=== PATIENT | male | born 1975 | race Hispanic/Latino ===

== ENCOUNTER 2017-01-07 20:21 | Emergency (ER) | payer BC, MEDICAID ==
--- NOTE | 2017-01-07 20:45 | ED PDOC ---
HPI: Psych/Substance Abuse Time Seen by Provider: 01/07/17 20:23 Chief Complaint (Nursing): Psychiatric Evaluation Chief Complaint (Provider): Crisis Evaluation History Per: Patient History/Exam Limitations: no limitations Onset/Duration Of Symptoms: Unknown Suicide/Self Injury Attempted (Context): None Modifying Factor(s): None Severity: None Associated Symptoms: denies: Suicidal Thoughts Additional Complaint(s): Patient is a 41 year old male brought in by EMS for a crisis evaluation. Patient states he is in the process of moving out of state and texted his ex- he is "ending his life in [place]". Ex- then called the police stating that the patient may be attempting to commit suicide. Patient offers no complaints, denies suicidal/homicidal ideation or hallucinations. PMD: none Past Medical History Reviewed: Historical Data, Nursing Documentation, Vital Signs Vital Signs: Last Vital Signs Temp 98 F 01/07/17 20:24 Pulse 88 01/07/17 20:24 Resp 18 01/07/17 20:24 BP 139/86 01/07/17 20:42 Pulse Ox 98 01/07/17 20:24 - Medical History PMH: No Chronic Diseases - Family History Family History: States: No Known Family Hx - Home Medications Home Medications: Ambulatory Orders Medication Instructions Recorded Azithromycin [Zithromax Z-Duarte] 250 mg PO DAILY #1 packet 05/14/14 Promethazine/Phenyleph/Codeine 2 tsp PO Q6 PRN #0 syr 05/14/14 [Promethazine Vc W/ Codeine 120 ml] Naproxen 375 mg PO Q8 PRN #21 tab 06/16/14 diaZEpam [Valium] 5 mg PO Q6 PRN #14 tab 06/16/14 oxyCODONE/Acetaminophen [Percocet 1 ea PO Q6 #15 tab 06/16/14 5/325 mg Tab] Azithromycin [Zithromax Z-Duarte] 250 mg PO DAILY #6 tab 07/17/15 Loratadine [Claritin] 10 mg PO DAILY PRN #10 tab 07/17/15 - Allergies Allergies/Adverse Reactions: Allergies Allergy/AdvReac Type Severity Reaction Status Date / Time No Known Allergies Allergy Verified 01/07/17 20:40 Review of Systems ROS Statement: Except As Marked, All Systems Reviewed And Found Negative Constitutional: Negative for: Fever Psych: Negative for: Suicidal ideation Physical Exam - Reviewed Nursing Documentation Reviewed: Yes Vital Signs Reviewed: Yes - Physical Exam Appears: Positive for: Well, Non-toxic, No Acute Distress Head Exam: Positive for: ATRAUMATIC, NORMAL INSPECTION, NORMOCEPHALIC Skin: Positive for: Normal Color, Warm, DRY Eye Exam: Positive for: Normal appearance, EOMI Neck: Positive for: Normal, Painless ROM Cardiovascular/Chest: Positive for: Regular Rate, Rhythm. Negative for: Gallop , Murmur Respiratory: Positive for: Normal Breath Sounds. Negative for: Accessory Muscle Use, Rhonchi, Respiratory Distress Extremity: Positive for: Normal ROM Neurologic/Psych: Positive for: Alert, Oriented, Mood/Affect (calm and cooperative) - ECG O2 Sat by Pulse Oximetry: 98 (RA) Pulse Ox Interpretation: Normal Medical Decision Making Medical Decision Making: Time: 20:25 Impression: crisis eval Plan: Crisis eval as per crisis patient is stable for discharge. feels better. Discussed results and plan with patient who expresses understanding. Counseling was provided regarding the diagnosis and prognosis. All questions answered and there is agreement with the plan to discharge home with instructions. Patient stable for discharge. Return if symptoms persist or worsen. Scribe Attestation: Documented by Noble Alves acting as a scribe for Alejandro Crooks. Provider Attestation: All medical record entries made by the Scribe were at my direction and personally dictated by me. I have reviewed the chart and agree that the record accurately reflects my personal performance of the history, physical exam, medical decision making, and the department course for this patient. I have also personally directed, reviewed, and agree with the discharge instructions and disposition. Disposition - Clinical Impression Clinical Impression: Adjustment disorder - Patient ED Disposition Is Patient to be Admitted: No Counseled Patient/Family Regarding: Studies Performed, Diagnosis - Disposition Disposition: Routine/Home Disposition Time: 20:45 Condition: STABLE Instructions: Mood Disorders (ED) Print Language: SCOTTISH
[2017-01-07 20:51] VITALS: BP 139/86; PULSE 88; RESP 18; TEMP 98; O2SAT 98
== END 2017-01-07 20:42 | disposition home or self-care (01) ==
LOC: H.ER 20:21
DX: F43.20 Adjustment disorder, unspecified (principal)

== ENCOUNTER 2017-02-07 19:04 | Emergency (ER) | payer OTHER ==
[2017-02-07 19:08] VITALS: BP 113/70; PULSE 79; RESP 18; TEMP 98.4; O2SAT 98
--- NOTE | 2017-02-07 20:14 | ED PDOC ---
Lower Extremity Pain/Injury Time Seen by Provider: 02/07/17 19:42 Chief Complaint (Nursing): Lower Extremity Problem/Injury Chief Complaint (Provider): Foot pain History Per: Patient Additional Complaint(s): Pt is a 41 yo male, no PMH, states he hit his right foot against his bedpost 2 days ago. right foot hit on the bed. Also c/o pain on lower back, right knee and right foot. Past Medical History Reviewed: Nursing Documentation, Vital Signs Vital Signs: Last Vital Signs Temp 98.4 F 02/07/17 19:05 Pulse 79 02/07/17 19:05 Resp 18 02/07/17 19:05 BP 113/70 02/07/17 19:05 Pulse Ox 98 02/07/17 19:05 - Medical History PMH: No Chronic Diseases - Surgical History Surgical History: No Surg Hx - Family History Family History: States: No Known Family Hx - Living Arrangements Living Arrangements: With Family - Social History Current smoker - smoking cessation education provided: No Alcohol: Social Drugs: Denies - Home Medications Home Medications: Ambulatory Orders Medication Instructions Recorded Azithromycin [Zithromax Z-Duarte] 250 mg PO DAILY #1 packet 05/14/14 Promethazine/Phenyleph/Codeine 2 tsp PO Q6 PRN #0 syr 05/14/14 [Promethazine Vc W/ Codeine 120 ml] Naproxen 375 mg PO Q8 PRN #21 tab 06/16/14 diaZEpam [Valium] 5 mg PO Q6 PRN #14 tab 06/16/14 oxyCODONE/Acetaminophen [Percocet 1 ea PO Q6 #15 tab 06/16/14 5/325 mg Tab] Azithromycin [Zithromax Z-Duarte] 250 mg PO DAILY #6 tab 07/17/15 Loratadine [Claritin] 10 mg PO DAILY PRN #10 tab 07/17/15 Ibuprofen [Motrin] 600 mg PO Q6 #20 tab 02/07/17 - Allergies Allergies/Adverse Reactions: Allergies Allergy/AdvReac Type Severity Reaction Status Date / Time No Known Allergies Allergy Verified 01/07/17 20:40 Review of Systems ROS Statement: Except As Marked, All Systems Reviewed And Found Negative Musculoskeletal: Positive for: Other (toe pain) Skin: Positive for: Bruising Physical Exam - Reviewed Nursing Documentation Reviewed: Yes Vital Signs Reviewed: Yes - Physical Exam Appears: Positive for: Well, Non-toxic, No Acute Distress Head Exam: Positive for: ATRAUMATIC, NORMAL INSPECTION, NORMOCEPHALIC Skin: Positive for: Normal Color, Warm, DRY Neck: Positive for: Normal, Painless ROM Cardiovascular/Chest: Positive for: Regular Rate, Rhythm Respiratory: Positive for: CNT, Normal Breath Sounds Extremity: Positive for: Normal ROM, Tenderness (right 5th toe), Other ( ecchymosis). Negative for: Deformity, Swelling Neurologic/Psych: Positive for: Alert - ECG O2 Sat by Pulse Oximetry: 98 Medical Decision Making Medical Decision Making: XR: Small fracture notes to base of proximal phalanx, as read by DESMOND Pt educated on results and demonstrated full understanding Pt advised RICE therapy. Given Podiatry clinic and [facility] to follow up Pt declined splint in ED Disposition - Clinical Impression Clinical Impression: Toe fracture - Patient ED Disposition Is Patient to be Admitted: No - Disposition Referrals: Podiatry Clinic [Outside] Disposition: Routine/Home Disposition Time: 20:58 Condition: STABLE Prescriptions: Ibuprofen [Motrin] 600 mg PO Q6 #20 tab Instructions: Toe Fracture (ED) Forms: [employer] (Haitian) - POA Present On Arrival: None
--- NOTE | 2017-02-08 10:55 | RAD ---
Indication: Pain, crush injury Three views, right foot 5th digit Comparison: None available Findings: Evidence of nondisplaced fracture involving the medial proximal aspect of the 5th proximal phalanx. Fracture line extends intraarticularly. The remainder of the visualized osseous structures on AP view appear unremarkable. Soft tissue swelling of the 5th digit. No evidence of radiopaque foreign body. Impression: Evidence of nondisplaced fracture involving the medial proximal aspect of the 5th proximal phalanx. Fracture line extends intraarticularly. Associated soft tissue swelling. Study has been marked for PA review.
== END 2017-02-07 20:58 | disposition home or self-care (01) ==
LOC: H.ER 19:04
DX: S92.501A Displaced unspecified fracture of right lesser toe(s), initial encounter for closed fracture (principal); W23.0XXA Caught, crushed, jammed, or pinched between moving objects, initial encounter; Y92.003 Bedroom of unspecified non-institutional (private) residence as the place of occurrence of the external cause